=== PATIENT | male | born 1945 | race Caucasian/White ===

== ENCOUNTER 2023-07-30 07:33 | Day surgery (SDC) | payer MEDICAID, OTHER ==
[~2023-07-30] VITALS: Ht 165.1 cm; Wt 86.4 kg
[2023-07-30] MEDS ORDERED: fentaNYL CITRATE/PF 100 MCG/2 ML AMP ONE (10:10)
[2023-07-30] MEDS ORDERED: MIDAZOLAM HCL 5 MG/5 ML VIAL ONE (10:10)
[2023-07-30 12:23] VITALS: O2SAT 100
[2023-07-30 14:12] VITALS: BP_SYST 182; PULSE 59; RESP 18
== END 2023-07-30 11:36 | disposition home or self-care (01) ==
LOC: SDS 07:33 → SMU 07:34 → SDS 11:36
PROVIDERS: ATTEND Internal Medicine
DX: Z12.11 Encounter for screening for malignant neoplasm of colon (principal); D12.3 Benign neoplasm of transverse colon; K64.8 Other hemorrhoids; I10 Essential (primary) hypertension; E78.5 Hyperlipidemia, unspecified; E11.40 Type 2 diabetes mellitus with diabetic neuropathy, unspecified; Z98.890 Other specified postprocedural states; Z98.818 Other dental procedure status; Z79.899 Other long term (current) drug therapy; Z87.891 Personal history of nicotine dependence; Z80.7 Family history of other malignant neoplasms of lymphoid, hematopoietic and related tissues
CPT/HCPCS: 45385; 99152; 82948; 88305; G0378; J2250; J3010